=== PATIENT | female | born 1970 | race Caucasian/White ===

== ENCOUNTER 2021-06-06 14:35 | Outpatient (CLI) | payer OTHER, SELFPAY ==
[2021-06-06 16:54] LABS: Hematocrit 36.2 % (37-47); Hemoglobin 11.4 g/dL (12.0-15.0); Mean Corp Hgb Conc 31.5 g/dL (32-36); Mean Corpuscular Hgb 24.1 pg (27.0-32.0); Mean Corpuscular Volume 76.5 fL (81-99); Mean Platelet Vol. 8.9 fl (6.2-12.0); Platelet Count 519 K/mm3 (150-450); RBC Distribution Width CV 14.8 % (11.6-14.6); RBC Distribution Width SD 40.6 fl (35.1-43.9); Red Blood Count 4.73 M/mm3 (4.2-5.4); White Blood Count 7.7 K/mm3 (4.4-11.0)
[2021-06-06 17:21] LABS: Estradiol 72.8 pg/mL; Follicle Stimulating Hormone < 0.2 mIU/mL; Luteinizing Hormone < 0.2 mIU/mL; T4 Free Direct 1.25 ng/dL (0.76-1.46); Thyroid Stim Hormone (TSH) 2.41 uIU/mL (0.358-3.74)
== END 2021-06-06 23:59 | disposition home or self-care (01) ==
LOC: WOBLAB 14:43
PROVIDERS: Visit Provider Obstetrics & Gynecology
DX: N93.9 Abnormal uterine and vaginal bleeding, unspecified (principal)
CPT/HCPCS: 36415; 82670; 83001; 83002; 84439; 84443; 85027

== ENCOUNTER 2021-10-27 07:57 | Day surgery (SDC) | payer OTHER, SELFPAY ==
[2021-10-27] VITALS (7 sets, daily range): BP systolic 126–144; BP diastolic 81–97; PULSE 54–83; RESP 16–18; TEMP 36.1–36.7; O2SAT 93–100; BMI 40.6
--- NOTE | 2021-10-27 | EMB_PTH ---
PATIENT: DENA MARIO LOC: [facility] [place] U#:[id number] AGE/SX: 50/F ROOM: RE10/27/[address]: Dr. Cyrus Strong MD : 1970 BED: DIS: 10/27/2021 SPEC #: [id number] RECD: 10/27/21 12:50 STATUS: NGHIA WONG #: [id number] JENN: 10/27/21 00:[address]: Cyrus Strong DEPT: SURGICAL PATHOLOGY RECD BY: Corey Patel ENTERED: 10/27/21 12:50 SP TYPE: ENDOM BX/C BETTYE DR: Dr. Ludmila Jean-Baptiste MD Tissues: Endometrium, NOS Procedures: Surgery Specimen Level IV HEADER OPERATION: Hysteroscopy, D & C Hannah PRE-OP DIAGNOSIS: Abnormal vaginal bleeding TISSUE SUBMITTED: Endometrial curettings MICROSCOPIC DIAGNOSIS Endometrium, curettings: Weakly proliferative to inactive endometrium with stromal breakdown. AM:ty 10/28/2021 MICROSCOPIC DESCRIPTION Slides are reviewed. GROSS DESCRIPTION Received in fixative is one container labeled with the patient's name and designated endometrial curettings. The specimen consists of multiple irregular fragments of red-alvarenga soft tissue that in aggregate measure 2 x 1.5 x 0.2 cm. The specimen is totally submitted in one cassette. / AM:ty 10/27/2021 TC:5 CPT: 17727
[2021-10-27] MEDS: Lactated Ringers 1,000 ML 15 ML IV (08:30)
--- NOTE | 2021-10-27 08:45 | PCM.HP.BLA ---
History and Physical Date of Admission: 10/27/21 Surgical History and Physical Date: 10/27/2021 Name: MARGRET GARCÍA Age: 50 Date of : 1970 Margret García, a 50 year old female 1 0 0 0 1, presents for Hysteroscopy, dilation and curettage, endometrial ablation via Derick -- Margret is here to have a hysteroscopy D&C Derick Ablation. Consents are signed. MEDICATIONS HISTORY: Patient is also takin. Asmanex Twisthaler 220 mcg/actuation(14 doses) breath activated inhalr, As Directed 2. estradiol 2 mg tablet, 1 PO QD 3. levalbuterol HFA 45 mcg/actuation aerosol inhaler, As Directed 4. omeprazole 40 mg capsule,delayed release, One pill by mouth once a day 5. Singulair 10 mg tablet, One pill by mouth once a day 6. triamterene 37.5 mg-hydrochlorothiazide 25 mg capsule, One pill by mouth once a day 7. Zoloft 100 mg tablet, One pill by mouth once a day ALLERGIES: Penicillins, Intolerance-unknown Infections - Chicken pox Illnesses - Asthma. Mineers Dx, Accidents - None Hospitalizations - see surgery Review of Systems: GENERAL - Denies fever, or chills SKIN - Denies skin changes EYES - Denies visual changes EARS - Denies difficulty hearing NOSE - Denies nasal congestion or bleeding MOUTH - Denies sore throat or difficulty swallowing NECK - Denies pain or swelling RESPIRATORY - Denies shortness of breath or wheezing CARDIOVASCULAR - Denies palpitations or chest pain GASTROINTESTINAL - Denies nausea, vomiting, diarrhea, constipation GENITOURINARY - Denies dysuria, frequency of urination, incontinence of urine MUSCULOSKELETAL - Denies joint or muscle pain NEUROLOGICAL - Denies localized numbness or weakness PSYCHIATRIC - Denies depression or anxiety ENDOCRINE - Denies heat or cold intolerance, weight loss or gain HEMATO-IMMUNOLOGIC - Denies excessive bleeding with cuts SOCIAL HISTORY: Alcohol Use - None Smoking - Never Diet - no special diet Lifestyle - moderate stress lifestyle and Exercise - active work Seat Belt Use - always 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 T and A, 1976 ; - PHYSICAL EXAM BP- 146/88 Sitting, Right arm, large cuff Weight- 238.62804 lbs Height- 64 inch BMI:[id number] CONSTITUTIONAL - NAD, well nourished, and well developed SKIN - No rash, lesions, or ulcers HEENT - Normocephalic, PERRLA, EOMI NECK - No nodes, no nuchal rigidity and thyroid normal size and texture EXTREMITIES - No edema or calf tenderness NEUROLOGICAL - Cranial nerves II-XII grossly intact PSYCHIATRIC - A and O to time, place, person, mood and affect External Genital Vagina - non-tender without lesions Urethra/Urethral Meatus - non-tender Bladder - non-tender Vagina - vaginal springer are pink and moist without loss of rugae and no evidence of atrophy Cervix - without cervical motion tenderness and has normal size and features without evident lesions Uterus - 5-6 cm in size, mobile and nontender Adnexa - clear without masses or tenderness ASSESSMENT/PLAN: 1. Abnormal Uterine And Vaginal Bleeding, Unspecified Patient previously on continuous OCP, with abnormal uterine bleeding heavy menstrual cycles. Then stopped OCP still with heavy menstrual cycles after holiday from continuous OCP. Now with intermittent spotting throughout her cycle and heavy bleeding Educated patient on options, labs within normal limits. Discussed IUD versus ablation. Risk benefits alternatives discussed. Patient elects for ablation 2. Encounter For Other Preprocedural Examination Pt scheduled for hysteroscopy, D, derick for AUB educated pt on r/b/a pt states understanding and wishes to proceed educated pt on post op recovery and pain follow up 2 weeks
[2021-10-27 08:51] LABS: Internal QC Validated? YES +Cl - CLEAR BKGD; Pregnancy, Urine Negative Negative
--- NOTE | 2021-10-27 10:41 | PCM.DC ---
Discharge Instructions Diet Discharge Diet: No restrictions Activity Discharge Activity: Return to Normal Activity, May Drive and May Shower May resume sexual activity in: 4-6 weeks Weight Bearing Status: Weight bearing as tolerated Dressing / Incision Call your doctor if your incision/area has: Continuous Slow Oozing and Foul Smelling Discharge Call your doctor if you observe: Fever of 101 or Higher, Shortness of breath and Chest pain Follow Up Care Please Follow Up With: Cyrus Strong MD When: 2 weeks postop Test Results: Test results from this visit will be discussed in further detail at your follow-up appointment, if applicable. Discharge Plan Admission Attending Provider: Cyrus Strong Primary Care Provider: Ludmila Jean-Baptiste Discharge Orders/Prescriptions Prescriptions: No Action calcium 600 mg Capsule 1,200 mg PO DAILY cetirizine [Zyrtec] 10 mg Tablet 10 mg PO DAILY sertraline [Zoloft] 100 mg Tablet 100 mg PO DAILY omeprazole 40 mg capsule,delayed release(DR/EC) 40 mg PO DAILY triamterene-hydrochlorothiazid 37.5-25 mg capsule 1 cap PO DAILY potassium 99 mg Tablet 99 mg PO DAILY triamcinolone acetonide [Nasacort] 55 mcg Aerosol,Guadalupe 1 spray INTRANASAL QHS Rx Instructions: administer into each nostril vitamin B complex [B-100 Complex] Tablet 1 tab PO DAILY montelukast 10 mg tablet 10 mg PO DAILY albuterol 90 mcg/actuation Aerosol 90 mcg INHALATION DAILY PRN PRN (Reason: asthma) Asmanex Twisthaler 220 mcg/ actuation (60) aerosol powdr breath activated 220 mcg INHALATION BID PRN PRN (Reason: asthma) Label Comments: INHALE 2 PUFFS BY MOUTH TWICE DAILY ferrous sulfate 27 mg iron Tablet 27 mg PO DAILY cholecalciferol (vitamin D3) [Vitamin D3] 125 mcg (5,000 unit) Tablet 125 mcg PO DAILY Referrals / Follow Up: Ludmila Jean-Baptiste MD [Primary Care Provider] - Disposition Disposition (needs filled in before D/C Order can be placed): Home, Self Care
--- NOTE | 2021-10-27 10:42 | PCM.OPRPT ---
Report of Operation Date of Procedure: 10/27/21 Pre-Operative Diagnosis: Abnormal uterine bleeding Post-Operative Diagnosis: Abnormal uterine bleeding Surgery/Procedure Performed:: Hysteroscopy, dilation curettage, endometrial ablation via Hannah Description of Surgical Findings:: Surgeon: Cyrus Strong MD Anesthesia: MAC EBL: Minimal Urine output: 30 cc IV fluids: 500 cc Complications: None Specimen: Endometrial curettings Findings: Preprocedure hysteroscopy with no pathology noted. Cavity length found to be 6 cm. Hannah endometrial ablation for 2 minutes. Post procedure hysteroscopy with no new pathology. Consent: Patient with abnormal uterine bleeding elects for hysteroscopy, dilation curettage, endometrial elation via Hannah. Patient understands the risk of the procedure include but are not limited to visceral or vascular injury, prolonged hospitalization, blood loss and need for transfusion, reoperation. Patient state understanding wish to proceed. All questions were answered and consent was signed. Procedure: Patient was brought back to the OR where MAC anesthesia was found to be adequate. Patient was prepared and draped in a dorsolithotomy position with yellowfin stirrups. A weighted speculum placed in the posterior aspect of the vagina. Cervical dilators were used to dilate the cervix. Hysteroscope was inserted and above findings were noted. Cavity length found to be 6 cm. Sharp endometrial curettage was performed. And sent to pathology. Hannah device set appropriately. Hannah inserted under direct visualization. Hannah safety test passed x2. Hannah device removed under direct visualization. Hysteroscope was inserted and above findings were noted. Good hemostasis was noted. All counts were correct x2. Patient tolerated the procedure well and was brought to recovery in a stable condition.
[2021-10-27] MEDS: Ketorolac 30 MG/ML Syringe IV (10:57)
[2021-10-27] MEDS: Acetaminophen 500 MG Tablet 1000 MG PO (12:00)
== END 2021-10-27 12:17 | disposition home or self-care (01) ==
LOC: SDC 08:00 → AC 08:19
PROVIDERS: Anesthesiology; PCP Family Medicine; Referring Provider Obstetrics & Gynecology; Visit Provider Obstetrics & Gynecology
PROC: 0U5B8ZZ Destruction of Endometrium, Via Natural or Artificial Opening Endoscopic (ICD-10-PCS; CPT 58558; principal; 2021-10-27 09:25)
DX: N93.9 Abnormal uterine and vaginal bleeding, unspecified (principal); J45.909 Unspecified asthma, uncomplicated; F32.A Depression, unspecified; K76.0 Fatty (change of) liver, not elsewhere classified; K21.9 Gastro-esophageal reflux disease without esophagitis; Z79.899 Other long term (current) drug therapy
CPT/HCPCS: 58558; 00952; 81025; 88305; J7120; J2405

== ENCOUNTER → 2022-06-12 | Outpatient (CLI) | payer OTHER, SELFPAY ==
[2022-06-19 11:30] LABS: HPV APTIMA, High Risk Negative (Negative)
== END | disposition home or self-care (01) ==
LOC: LABSPEC 16:03
PROVIDERS: PCP Family Medicine; Visit Provider Obstetrics & Gynecology
DX: Z12.4 Encounter for screening for malignant neoplasm of cervix (principal)
CPT/HCPCS: 87624; 88175; G0145